=== PATIENT | female | born 1980 | race American Indian/Alaskan Native ===

== ENCOUNTER 2017-06-24 02:55 | Outpatient (CLI) | payer MEDICAID | END 2017-06-24 03:55 | disposition home or self-care (01) | LOC: TRG 02:55 | PROVIDERS: ATTEND Obstetrics & Gynecology | DX: O47.1 False labor at or after 37 completed weeks of gestation (principal); Z3A.37 37 weeks gestation of pregnancy | CPT/HCPCS: 59025 ==